=== PATIENT | female | born 1940 | race Caucasian/White ===

== ENCOUNTER 2016-10-06 11:49 | Inpatient (IN) ==
--- NOTE | 2016-10-05 22:09 | Discharge Summary ---
<Sarah Beth Hogan - Last Filed: 10/05/16 22:06> Date of Encounter: 10/05/16 - Discharge Diagnosis (1) Arthritis of knee, right Priority: Primary Status: Acute (2) Status post total knee replacement, right Priority: Primary Status: Acute (3) Pacemaker Priority: Secondary Status: Chronic (4) COPD (chronic obstructive pulmonary disease) Priority: Secondary Status: Chronic Qualifiers: COPD type: unspecified COPD Qualified Code(s): J44.9 - Chronic obstructive pulmonary disease, unspecified (5) Hypertension Priority: Secondary Status: Chronic Qualifiers: Hypertension type: essential hypertension (6) Hypothyroidism Priority: Secondary Status: Chronic Qualifiers: Hypothyroidism type: unspecified (7) Hyperlipidemia Priority: Secondary Status: Chronic Qualifiers: Hyperlipidemia type: unspecified Qualified Code(s): E78.5 - Hyperlipidemia , unspecified - Discharge Medications Home Medications: Metoprolol [Lopressor] 25 mg PO BID 09/19/14 [History] Budesonide/Formoterol 160/4.5 [Symbicort] 1 puff IH BIDR PRN 12/13/14 [History] Clopidogrel [Plavix] 75 mg PO DAILY 12/13/14 [History] hydroCHLOROthiazide [Hydrochlorothiazide] 25 mg PO DAILY 12/13/14 [History] Amlodipine Besylate 10 mg PO DAILY 07/09/15 [History] Ginkgo Biloba 60 mg PO DAILY 07/09/15 [History] Oxybutynin [Ditropan] 5 mg PO BID 07/09/15 [History] Atorvastatin [Lipitor] 40 mg PO HS #30 tablet 07/10/15 [Rx] Isosorbide MONOnitrate (24 HR) [Imdur] 120 mg PO DAILY 365 Days 07/10/15 [Rx] Nitroglycerin [Nitrostat] 0.4 mg SL Q5M PRN #1 vial 07/10/15 [Rx] Albuterol Sulfate [Albuterol Inhaler] 1 puff IH QID PRN 08/29/15 [History] Aspirin Enteric Coated [Aspirin EC] 325 mg PO DAILY #21 tablet. 10/05/16 [Rx] OxyCODONE Immed Rel [Roxicodone 5 MG] 5 - 10 mg PO Q6HR PRN #40 tablet 10/05/16 [Rx] Aspirin [Lo-Dose Aspirin EC] 81 mg PO DAILY 10/06/16 [History] Allergies/Adverse Reactions: 3 Allergy/AdvReac Type Severity Reaction Status Date / Time isosorbide [From Isordil] AdvReac Rash Verified 10/06/16 13:06 Primary care physician: New Hawkins DO - Patient Status Disposition: Transfer Inpatient Rehab Fac Condition: Good - Discharge Instructions Follow Up With: New Hawkins DO [Primary Care Provider] - - Hospital Course Hospital course: Ms. Swain is a 76 year old female - Time Spent with Patient Total time spent providing and/or coordinating discharge services: <GuzmanChristopher - Last Filed: 10/09/16 05:55> Date of Encounter: 10/09/16 Time of Encounter: 05:54 - Discharge Diagnosis (1) Hypertension Priority: Secondary Status: Chronic Qualifiers: Hypertension type: unspecified secondary hypertension Qualified Code(s): I15.9 - Secondary hypertension, unspecified; I15 - Secondary hypertension (2) Hypothyroidism Priority: Secondary Status: Chronic Qualifiers: Hypothyroidism type: unspecified Qualified Code(s): E03.9 - Hypothyroidism , unspecified (3) Hyperlipidemia Priority: Secondary Status: Chronic Qualifiers: Hyperlipidemia type: unspecified Qualified Code(s): E78.5 - Hyperlipidemia , unspecified (4) Arthritis of knee, right Priority: Primary Status: Chronic (5) Status post total knee replacement, right Priority: Primary Status: Acute (6) Pacemaker Priority: Secondary Status: Chronic (7) COPD (chronic obstructive pulmonary disease) Priority: Secondary Status: Chronic Qualifiers: COPD type: unspecified COPD Qualified Code(s): J44.9 - Chronic obstructive pulmonary disease, unspecified Primary care physician: New Hawkins DO - Patient Status Functional capacity at discharge: uses cane/walker Overall status at discharge: patient is progressing back to baseline - Hospital Course Hospital course: Ms. Swain is a 76 year old female Status post revision right knee. Uni to a total The patient had an uneventful postoperative course. They received antibiotics and physical therapy and were discharged in stable condition. There will follow -up in the office in 2 weeks. . - Time Spent with Patient Total time spent providing and/or coordinating discharge services:
--- NOTE | 2016-10-06 09:31 | Physician Discharge Referral ---
ExtendedCare Referral Info Transfer To: [facility] - Provider in Charge: Provider in Charge after Transfer: PCP Institutional Level of Care: Skilled - Diagnosis (1) Arthritis of knee, right Priority: Primary Status: Acute (2) Status post total knee replacement, right Priority: Primary Status: Acute (3) Pacemaker Priority: Secondary Status: Chronic (4) COPD (chronic obstructive pulmonary disease) Priority: Secondary Status: Chronic (5) Hypertension Priority: Secondary Status: Chronic (6) Hypothyroidism Priority: Secondary Status: Chronic (7) Hyperlipidemia Priority: Secondary Status: Chronic Expected Duration of Placement: < 30 days Prognosis: Good Aware of Diagnosis: Patient Aware of Prognosis: Patient - Transfer Medications Prescriptions: OxyCODONE Immed Rel [Roxicodone 5 MG] 5 - 10 mg PO Q6HR PRN #40 tablet PRN Reason: Pain Aspirin Enteric Coated [Aspirin EC] 325 mg PO DAILY #21 tablet.dr Rob Medications: Metoprolol [Lopressor] 25 mg PO BID 09/19/14 [History] Budesonide/Formoterol 160/4.5 [Symbicort] 1 puff IH BIDR PRN 12/13/14 [History] Clopidogrel [Plavix] 75 mg PO DAILY 12/13/14 [History] hydroCHLOROthiazide [Hydrochlorothiazide] 25 mg PO DAILY 12/13/14 [History] Amlodipine Besylate 10 mg PO DAILY 07/09/15 [History] Ginkgo Biloba 60 mg PO DAILY 07/09/15 [History] Oxybutynin [Ditropan] 5 mg PO BID 07/09/15 [History] Atorvastatin [Lipitor] 40 mg PO HS #30 tablet 07/10/15 [Rx] Isosorbide MONOnitrate (24 HR) [Imdur] 120 mg PO DAILY 365 Days 07/10/15 [Rx] Nitroglycerin [Nitrostat] 0.4 mg SL Q5M PRN #1 vial 07/10/15 [Rx] Albuterol Sulfate [Albuterol Inhaler] 1 puff IH QID PRN 08/29/15 [History] Naproxen [Naprosyn] 500 mg PO BID PRN 08/14/16 [History] Aspirin Enteric Coated [Aspirin EC] 325 mg PO DAILY #21 tablet. 10/05/16 [Rx] OxyCODONE Immed Rel [Roxicodone 5 MG] 5 - 10 mg PO Q6HR PRN #40 tablet 10/05/16 [Rx] Allergies/Adverse Reactions: 3 Allergy/AdvReac Type Severity Reaction Status Date / Time isosorbide [From Isordil] Allergy Rash Verified 09/24/16 10:06 lisinopril Allergy Cough Verified 08/14/16 09:25 - Respiratory Orders None Smoking Cessation: Smoking cessation has been advised. For more information, call the [place] Tobacco Quit Line at 0-056-PJWQ-NOW. - Ancillary Orders May use pressure relief devices daily prn, May go on DEMETRI w/family/respon alliance party w /meds at nurse discretion PRN, May consult with Dentist, Television Equipment Operator, Dynamics Ax Solution Architect PRN - Mobility Orders Chair, Ambulate - Rehabiliation Orders Rehab Potential: Good Rehab Orders: ROM Exercises, Evaluation for Physical Therapy, Evaluation for Occupational Therapy - Treatments List/Other: Right Knee: Revision TKR Opsite dressing, leave intact until first post-operative visit. If dressing becomes >50% saturated, contact office, remove dressing and place appropriate dressing in its place. Do not allow for dressing to get wet. Modale in place. To be removed at POW#2 once incision has healed. PT: Precautions x 6 weeks Apply cold therapy wrap 3-6x/day for 20 minutes at a time. Encourage ambulation throughout the day and incentive spirometer 10x/hour. Elevate affected extremity above heart as tolerated. Brace: Knee immobilizer - keep in place at night until first post-operative appointment - Diet Orders Regular CERTIFICATION: I certify that the transfer of the above named patient to an Extended Care Facility is necessary for the continuing treatment of the diagnosis listed. The above information is true and accurate reflection of patient's current condition. Confidential - Redisclosure prohibited without a patient's written consent.
--- NOTE | 2016-10-06 11:56 | History & Physical Report ---
Date of Encounter: 10/06/16 Time of Encounter: 11:55 24 Hour HP Update - Instructions Instructions: If the History and Physical is less than 30 days old and was completed prior to A.M. admission and or procedure and has NOT been updated on calendar day of procedure please complete this update prior to performing procedure. - Update Patient reports changes in Medical Condition: No Changes in examination, assessment, or condition: No Changes in Medication: No Preop tests/diagnostics Reviewed: Yes Surgery Remains Indicated: Yes Consent for Planned Operative Procedure(s) Verified: Yes - Pre-Operative Checklist Preoperative Checklist Indicated: No Prophylactic Antibiotic Ordered: Yes Is VTE Prophylaxis Indicated?: Yes
[2016-10-06] MEDS ORDERED: Famotidine 20 MG/2 ML VIAL IVP ONE (12:11)
[2016-10-06] MEDS ORDERED: Acetaminophen IV 1,000 MG/100 ML INFUS..BTL IVPB ONE (12:12)
[2016-10-06] MEDS ORDERED: Gabapentin 300 MG CAPSULE PO ONE (12:12)
[2016-10-06] MEDS ORDERED: Ringers Solution, Lactated 1,000 ML IVC SCH ×2 (12:15→16:24)
[2016-10-06 12:25] LABS: Basophils # 0.1 K/mcL (0.0-0.2); Basophils % 1.1 %; Eosinophils # 0.3 K/mcL (0.0-0.6); Eosinophils % 3.8 %; Hematocrit 44.6 % (35.3-44.9); Hemoglobin 15.1 g/dL (11.5-15.4); Immature Granulocytes % 0.3 % (0-4); Lymphocytes # 2.8 K/mcL (0.6-4.6); Lymphocytes % 42.2 %; Mean Corpuscular HGB Conc 33.9 g/dL (31.6-35.5); Mean Corpuscular Hemoglobin 28.9 pg (28.0-33.3); Mean Corpuscular Volume 85.3 fL (83.0-100.0); Mean Platelet Volume 9.1 fL (9.4-12.4); Monocytes # 0.4 K/mcL (0.0-1.3); Monocytes % 6.2 %; Neutrophils # 3.1 K/mcL (1.6-8.9); Platelet Count 204 K/mcL (140-400); Red Blood Count 5.23 M/mcL (3.82-4.97); Red Cell Distribution Width 12.7 % (11.5-14.5); Segmented Neutrophils % 46.4 %
[2016-10-06] MEDS ORDERED: *HR* Promethazine 25 MG/ML VIAL IVP PRN (12:25)
[2016-10-06] MEDS ORDERED: *HR* HYDROmorphone (PF) 1 MG/ML SYRINGE IVP PRN (12:25)
[2016-10-06] MEDS ORDERED: Dexamethasone 4 MG/ML VIAL ONE (12:31)
[2016-10-06] MEDS ORDERED: Lidocaine -MPF 2% 2 ML VIAL ONE (12:31)
[2016-10-06] MEDS ORDERED: Ondansetron 4 MG/2 ML VIAL ONE (12:31)
[2016-10-06] MEDS ORDERED: *HR* Propofol 200 MG/20 ML VIAL IVP ONE (12:31)
[2016-10-06] MEDS ORDERED: Lidocaine -MPF 4% 5 ML AMPUL ONE (12:31)
[2016-10-06] MEDS ORDERED: *HR* FentaNYL (PF) 100 MCG/2 ML VIAL ONE (12:31)
[2016-10-06] MEDS ORDERED: *HR* Succinylcholine 200 MG/10 ML VIAL IVP ONE (12:31)
[2016-10-06] MEDS ORDERED: CeFAZolin Pre 2,000 MG/100 ML 2,000 MG/100 ML BAG IVPB ONE (12:32)
[2016-10-06] MEDS ORDERED: Albuterol 2.5 MG/3 ML NEBULIZER IH ONE (12:41)
--- NOTE | 2016-10-06 12:57 | Anesthesia Evaluation PreOp ---
Date of Encounter: 10/06/16 Time of Encounter: 13:00 - Past History Planned Operation: Rt TKA Cardiac History: SD, Angina, HTN, Hyperlipidemia, Cardiac Surgery (CABG X3 1993) , Cardiac Stent (Stent X 4 2015), Pacemaker/ICD (Interrogated 2 weeks ago, pacemaker dependent) Pulmonary History: Denies Any Significant HX LAB TECH History: Denies Any Significant HX Other Medical History: Thyroid Anesthesia History: No Prior Anesthetic Complications : No Alcohol Use: none Drug use: none Medications and Allergies Metoprolol [Lopressor] 25 mg PO BID 09/19/14 [History] Budesonide/Formoterol 160/4.5 [Symbicort] 1 puff IH BIDR PRN 12/13/14 [History] Clopidogrel [Plavix] 75 mg PO DAILY 12/13/14 [History] hydroCHLOROthiazide [Hydrochlorothiazide] 25 mg PO DAILY 12/13/14 [History] Amlodipine Besylate 10 mg PO DAILY 07/09/15 [History] Ginkgo Biloba 60 mg PO DAILY 07/09/15 [History] Oxybutynin [Ditropan] 5 mg PO BID 07/09/15 [History] Atorvastatin [Lipitor] 40 mg PO HS #30 tablet 07/10/15 [Rx] Isosorbide MONOnitrate (24 HR) [Imdur] 120 mg PO DAILY 365 Days 07/10/15 [Rx] Nitroglycerin [Nitrostat] 0.4 mg SL Q5M PRN #1 vial 07/10/15 [Rx] Albuterol Sulfate [Albuterol Inhaler] 1 puff IH QID PRN 08/29/15 [History] Naproxen [Naprosyn] 500 mg PO BID PRN 08/14/16 [History] Aspirin Enteric Coated [Aspirin EC] 325 mg PO DAILY #21 tablet. 10/05/16 [Rx] OxyCODONE Immed Rel [Roxicodone 5 MG] 5 - 10 mg PO Q6HR PRN #40 tablet 10/05/16 [Rx] 3 Allergy/AdvReac Type Severity Reaction Status Date / Time No Known Allergies Allergy Verified 10/06/16 12:56 - Meds/Allergy Pre-op Review Medications Reviewed: Yes Allergies Reviewed: Yes Beta Blockers on Current Med List: Yes (Took Metoprolol today 0830) Anesthesia Results - Labs 10/06/16 12:13 10/06/16 12:13 Laboratory Tests 09/24/16 09/24/16 10/06/16 10:26 10:26 12:13 Hgb 15.1 Hct 44.6 Plt Count 204 PT 11.4 INR 1.1 APTT 29.2 Sodium 141 Potassium BUN 11 Creatinine 1.02 10/06/16 12:13 Hgb Hct Plt Count PT INR APTT Sodium Potassium 3.4 L BUN Creatinine - Imaging EKG: report reviewed Additional studies: Cardiac Cath LVEF 60%, patent stents and graft except for SVG to Circ Anesthesia Exam O2 Sat Height 1.55 m Height 1.55 m Weight 67.585 kg Weight 67.585 kg O2 Sat by Pulse Oximetry 96 Vital Signs Temp Pulse Resp BP Pulse Ox 98.0 F 60 18 163/78 96 10/06/16 12:33 10/06/16 12:33 10/06/16 12:33 10/06/16 12:33 10/06/16 12:33 Height: 5'1 Weight: 149 lbs NPO (# of Hours): MN Pain Scale: 0 - HEENT Pupil (Motor): Pupils equal, EOMI Mallampati: III Denture Type: Upper: Complete Oral Opening: Less than or equal to 3 - LAB TECH LOC: Oriented LAB TECH Motor: Normal RUE, Normal LUE, Normal RLE, Normal LLE, Normal Face LAB TECH Sensory: Normal: RUE, LUE, RLE, LLE, Face - Cardiac Rhythm: Regular Murmur: None JVD: No Carotid Bruit: No - Pulmonary Breath Sounds: bilateral Clear Respiratory Effort: Symmetrical Anesthesia Assess/Plan ASA Score: 3 (CAD HTN Pacemaker) Modified Jasmin Scale for Level of Consciousness: Cooperative, oriented, and tranquil Anesthetic Plan: General, Regional Monitoring Plan: Standard Monitors Recovery Plan: PACU (Discussed GA and RA, agrees to proceed)
[2016-10-06] MEDS ORDERED: Plasma-Lyte A (PH 7.4) 1,000 ML IVC SCH (13:00)
[2016-10-06] MEDS ORDERED: ROPIVACAINE HCL/PF 0.5% 30 ML VIAL ONE (13:14)
[2016-10-06] MEDS ORDERED: Bupivacaine/Clonidine Syringe 1 EACH SYRINGE ONE (13:15)
[2016-10-06] MEDS ORDERED: Tetracaine/PF 20 MG/2 ML AMPUL ONE (13:15)
[2016-10-06] MEDS ORDERED: *HR* Midazolam HCl 2 MG/2 ML VIAL ONE (13:16)
--- NOTE | 2016-10-06 13:40 | Anesthesia Procedures ---
Date of Encounter: 10/06/16 Time of Encounter: 12:55 Procedures: Anesthesia - Nerve Block Procedure Date: 10/06/16 Time: 13:30 Pre-op Diagnosis: Rt Total Knee Loosening Surgical Procedure: Rt TKA Revision Checklist: Correct Patient Identifier Correct side: Right Blood Thinner: Yes (Off Plavix 5 days) Monitor Applied: EKG, BP, Pulse Oximetry Supplemental Oxygen via Nasal Cannula (L/min): 2 Sedation: Versed (mg): 2 Sedation: Fentanyl (mcg): 50 Indication: Post Op Analgesia Pre-op Neuro Deficits: No Block Type: Femoral, Other (IPACK) Catheter placed: No Depth at skin (cm): 2 Sterile Technique: Yes Ultrasound used: Yes Anatomy identified: Yes Visual spread of Local: Yes Neuro Stimulation: Yes Nerve Stimulator Range: >0.4 - 0.6 mA Blood on Needle Aspiration: No Smooth Injection of Local: Yes Pain with Injection of Local: No Prep: Chlorhexadine Needle: 22 x 50 mm Stimuplex, 21 x 100 mm Stimuplex Local: 0.25% Bupivicaine w/Clonidine 20 mcg/cc, Tetracaine (40), Ropivacaine ( 0.5%) Volume (cc): 30 Number of Attempts: 1 Complications: None/effective block Vitals: O2 Sat Height 1.55 m Height 1.55 m Weight 67.585 kg Weight 67.585 kg O2 Sat by Pulse Oximetry 93 O2 Sat by Pulse Oximetry 94 O2 Sat by Pulse Oximetry 96 Vital Signs Temp Pulse Resp BP Pulse Ox 98.0 F 60 18 163/78 96 10/06/16 12:33 10/06/16 12:33 10/06/16 12:33 10/06/16 12:33 10/06/16 12:33
--- NOTE | 2016-10-06 14:50 | Orthopedic Operative Note ---
Date of procedure: 10/06/16 Pre-op diagnosis: Aseptic loosening right unicondylar knee replacement Post-op diagnosis: same Procedure: Procedure: Removal of unicondylar knee replacement left revision total knee replacement Estimated blood loss: 200 cc Hardware: Arthrex: Metal and polyethylene replacement. Femur: 3, tibia: 3, [place]: 11, 30 patella. Exam Under anesthesia: Full range of motion mid flexion varus valgus instability Procedural Notes: Grade 3 arthritic changes patellofemoral joint lateral compartment. Operative procedure: The patient was brought to the operating room and placed on the operating room table. After general anesthesia was administered the operative knee was examined. Findings were noted in the exam under anesthesia. The operative extremity was prepped and draped in sterile surgical fashion. The patient received IV antibiotics prior to skin incision. A standard midline incision was made centered over the patella incooperating the old incision. The incision was made through the skin and subcutaneous tissue. A medial parapatellar tendon approach was performed. Care was taken to preserve tissue along the medial aspect of the patella. And to protect the patella tendon. The deep MCL was released off the medial tibia. The infra patella fat pad was excised. Cultures were obtained. The knee was brought into flexion , the interface between the patient's femoral component and distal femur were disrupted with a osteotome and oscillating saw. Femoral component was removed removed without significant bone loss. Attention was then turned to the tibial component this was an all poly- component and removed without incident. The tibial component was loose. The entry holes made for intramedullary femoral guide guide was seated in 5 degrees of valgus distal cut was made. ACL PCL lateral meniscus were removed and shows entry hole was made for the intramedullary tibial guide guide was seated to resect at the level of the medial cut. Femur sized to a size 3 anterior cut was made followed by the posterior condylar cut followed by chamfer cuts. Finishing block was seated box cut was made lug holes are drilled. Tibia subluxed forward sized to a 3 it was she will punched after reamed. The trial components were seated and secured had good fit and fixation and full motion full extension with a 11 spacer. The patella was everted patella cut was made with insertion partial patella tendon patella sized to a 30, 30 guide was seated holes were drilled trial reduction with excellent patella tracking The trial components were removed. The knee sat for 2 minutes with a Betadine saline solution. It was irrigated out with 2 L of pulse irrigation. The tibia cemented first followed by the femur 11 poly-was seated. The knee was brought to full extension while the cement hardened. After the cement hardened the knee was irrigated out again. The knee was closed by the PA. The extensor mechanism was closed with a running #2 Fiberwire suture and a running #2 PDS suture. The deep tissue was irrigated and closed deep with #1 PDS suture superficially with 0 PDS suture. The skin was closed with skin aamir. The patient was placed in a sterile dressing and postoperative brace. They were extubated and transferred to recovery room in stable condition. Anesthesia: VANI Surgeon: Christopher Hinds Steel Sash Erector: Morena Jones Condition: stable Disposition: PACU
[2016-10-06 15:58] LABS: Hematocrit 40.3 % (35.3-44.9); Hemoglobin 13.7 g/dL (11.5-15.4)
--- NOTE | 2016-10-06 15:59 | Anesthesia Evaluation Post Op ---
Date of Encounter: 10/06/16 Time of Encounter: 16:00 - Vital Signs Vital Signs: Vital Signs/O2 Sat/Glucose, Most Current Temp Pulse Resp BP Pulse Ox 10/06/16 15:54 97.1 F L 60 14 125/60 96 10/06/16 15:44 60 12 132/68 97 10/06/16 15:34 60 14 143/68 97 10/06/16 15:24 97.4 F L 60 13 137/65 95 10/06/16 13:53 61 16 124/61 93 10/06/16 13:36 60 15 140/61 93 10/06/16 13:15 60 16 157/71 94 10/06/16 12:33 98.0 F 60 18 163/78 96 - Lungs Lungs: Clear Ascult./Percussion - Airway Airway: Non-obstructed - Cardiovascular Regular Rate - Mental Status Mental Status: Alert & Oriented, Answers Appropriately - Pain Pain Scale: 0 - Nausea Vomiting Nausea Vomiting: Not Present - Hydration Hydration: Ice chips - Discharge PostOp Status: Transfer Patient to floor
[2016-10-06] MEDS ORDERED: MOM Conc 10 ML UD.LIQ PO PRN (16:24)
[2016-10-06] MEDS ORDERED: Ondansetron 4 MG/2 ML VIAL IVP PRN (16:24)
[2016-10-06] MEDS ORDERED: Budesonide/Formoterol 160/4.5 MDI IH PRN (16:24)
[2016-10-06] MEDS ORDERED: Nitroglycerin 0.4 MG TAB.SUBL SL PRN (16:24)
[2016-10-06] MEDS ORDERED: *HR* OxyCODONE Immed Rel 5 MG TABLET PO PRN (16:24)
[2016-10-06] MEDS ORDERED: Sennosides 8.6 MG TABLET PO PRN (16:24)
[2016-10-06] MEDS ORDERED: Naloxone 0.4 MG/ML INJ IVP PRN (16:24)
[2016-10-06] MEDS: ceFAZolin 2,000 MG in D5% in Water 100 ML IVPB SCH (17:38)
[2016-10-06] MEDS: *HR* Enoxaparin 30 MG/0.3 ML SYRINGE SQ SCH (17:39)
[2016-10-06] MEDS ORDERED: *HR* Enoxaparin 30 MG/0.3 ML SYRINGE SQ SCH (18:00)
[2016-10-06] MEDS ORDERED: Temazepam 15 MG CAPSULE PO PRN (21:00)
[2016-10-07] MEDS: ceFAZolin 2,000 MG in D5% in Water 100 ML IVPB SCH (01:19)
[2016-10-07] MEDS: *HR* Enoxaparin 30 MG/0.3 ML SYRINGE SQ SCH ×2 (05:14→17:44)
[2016-10-07 05:29] LABS: Hematocrit 37.2 % (35.3-44.9); Hemoglobin 12.4 g/dL (11.5-15.4)
[2016-10-07] MEDS: *HR* OxyCODONE Immed Rel 5 MG TABLET PO PRN ×3 (05:37→17:43)
[2016-10-07 05:43] LABS: BUN/Creatinine Ratio 15 (6-26); Blood Urea Nitrogen 13 mg/dL (7-20); Calcium 8.7 mg/dL (8.6-10.8); Carbon Dioxide 29 mEq/L (19-29); Chloride 101 mEq/L (98-109); Glucose 180 mg/dL (70-99); Osmolality,Calculated 293 (280-300); Potassium 3.4 mEq/L (3.5-4.5); Sodium 139 mEq/L (136-145); eGFR For African Americans > 60 (> 60); eGFR For Non-African Americans > 60 (> 60)
--- NOTE | 2016-10-07 06:49 | Orthopedics Progress Note ---
Date of Encounter: 10/07/16 Time of Encounter: 06:49 - Assessment and Plan (1) Hypertension Current Visit: No Status: Chronic Qualifiers: Hypertension type: unspecified secondary hypertension Qualified Code(s): I15.9 - Secondary hypertension, unspecified; I15 - Secondary hypertension (2) Hypothyroidism Current Visit: No Status: Chronic Qualifiers: Hypothyroidism type: unspecified Qualified Code(s): E03.9 - Hypothyroidism , unspecified (3) Hyperlipidemia Current Visit: No Status: Chronic Qualifiers: Hyperlipidemia type: unspecified Qualified Code(s): E78.5 - Hyperlipidemia , unspecified (4) Arthritis of knee, right Current Visit: Yes Status: Chronic (5) Status post total knee replacement, right Current Visit: Yes Status: Acute (6) Pacemaker Current Visit: Yes Status: Chronic (7) COPD (chronic obstructive pulmonary disease) Current Visit: Yes Status: Chronic Qualifiers: COPD type: unspecified COPD Qualified Code(s): J44.9 - Chronic obstructive pulmonary disease, unspecified Subjective Interval history: Patient was seen this morning doing well without complaints. Afebrile vital signs stable. Operative extremity: Neurovascularly intact Dressing clean dry and intact Calves nontender Assessment and plan: Continue with postoperative care hematocrit 37 Objective Vital signs: Vital Signs Temp Pulse Resp BP Pulse Ox 10/07/16 04:57 98.1 F 60 17 124/75 97 10/06/16 23:51 97.4 F L 60 15 117/69 95 10/06/16 21:30 97.0 F L 60 16 109/65 96 10/06/16 17:55 97.6 F 60 16 113/50 96 10/06/16 17:13 97.2 F L 60 16 101/58 95 10/06/16 16:46 97.2 F L 60 15 115/58 95 10/06/16 16:25 97.1 F L 60 15 124/56 95 10/06/16 16:04 60 12 125/61 96 10/06/16 15:54 97.1 F L 60 14 125/60 96 10/06/16 15:44 60 12 132/68 97 10/06/16 15:34 60 14 143/68 97 10/06/16 15:24 97.4 F L 60 13 137/65 95 10/06/16 13:53 61 16 124/61 93 10/06/16 13:36 60 15 140/61 93 10/06/16 13:15 60 16 157/71 94 10/06/16 12:33 98.0 F 60 18 163/78 96 Intake and Output 10/06/16 10/06/16 10/07/16 15:59 23:59 07:59 Intake Total 100 / 100 600 / 600 Output Total 200 / 200 800 / 800 Balance -200 / -200 100 / 100 -200 / -200 Intake: IV Fluids 100 / 100 Ancef 2,000 MG In 100 / 100 Dextrose 5% 100 ML @ 200 mls/hr IVPB Q8H [facility] Rx#: [id number] Oral 0 / 0 600 / 600 Output: Urine 800 / 800 Estimated Blood Loss 200 / 200 Other: Weight 67.585 kg - Labs CBC & BMP: 10/07/16 05:13 10/07/16 05:13 Labs: Abnormal lab results RBC 5.23 M/mcL (3.82-4.97) H 10/06/16 12:13 MPV 9.1 fL (9.4-12.4) L 10/06/16 12:13 Potassium 3.4 mEq/L (3.5-4.5) L 10/07/16 05:13 Glucose 180 mg/dL (70-99) H 10/07/16 05:13 - VTE Documentation of Mechanical Device: Venous foot pump, device Consult Discharge Plan - Plan Referrals: New Hawkins DO [Primary Care Provider] -
[2016-10-07] MEDS: Isosorbide MONOnitrate (24 HR) 60 MG TAB.ER.24H PO SCH (10:03)
[2016-10-07] MEDS: Aspirin Enteric Coated 81 MG Tablet PO SCH (10:03)
[2016-10-07] MEDS: hydroCHLOROthiazide 25 MG TABLET PO SCH (10:11)
[2016-10-07] MEDS: amLODIPine 5 MG TABLET PO SCH (10:11)
[2016-10-07] MEDS: (Ginkgo Biloba [Ginkgo Biloba] 60 MG) PO SCH (10:11)
--- NOTE | 2016-10-07 12:23 | Event Note ---
Date of Encounter: 10/07/16 Time of Encounter: 12:22 PCR - Right TKR - Revision to POD1. Patient seen at bedside. Labs stable Pain control: Adequate On Plavix History of Pacemaker, Stent placement, COPD Baseline GFR 53 Participating in PT. All questions and concerns addressed. Educated on use of incentive spirometer, ambulation, and hydration. Patient educated on post-operative restrictions and care. Addressed: See above D/C plan:. [facility]
[2016-10-07] MEDS: *HR* HYDROmorphone (PF) 1 MG/ML SYRINGE IVP PRN (21:53)
[2016-10-08] MEDS: *HR* HYDROmorphone (PF) 1 MG/ML SYRINGE IVP PRN (03:56)
[2016-10-08] MEDS: *HR* OxyCODONE Immed Rel 5 MG TABLET PO PRN ×2 (06:21→17:08)
[2016-10-08] MEDS: *HR* Enoxaparin 30 MG/0.3 ML SYRINGE SQ SCH ×2 (06:22→17:04)
--- NOTE | 2016-10-08 06:48 | Orthopedics Progress Note ---
Date of Encounter: 10/08/16 Time of Encounter: 06:48 - Assessment and Plan (1) Hypertension Current Visit: No Status: Chronic Qualifiers: Hypertension type: unspecified secondary hypertension Qualified Code(s): I15.9 - Secondary hypertension, unspecified; I15 - Secondary hypertension (2) Hypothyroidism Current Visit: No Status: Chronic Qualifiers: Hypothyroidism type: unspecified Qualified Code(s): E03.9 - Hypothyroidism , unspecified (3) Hyperlipidemia Current Visit: No Status: Chronic Qualifiers: Hyperlipidemia type: unspecified Qualified Code(s): E78.5 - Hyperlipidemia , unspecified (4) Arthritis of knee, right Current Visit: Yes Status: Chronic (5) Status post total knee replacement, right Current Visit: Yes Status: Acute (6) Pacemaker Current Visit: Yes Status: Chronic (7) COPD (chronic obstructive pulmonary disease) Current Visit: Yes Status: Chronic Qualifiers: COPD type: unspecified COPD Qualified Code(s): J44.9 - Chronic obstructive pulmonary disease, unspecified Subjective Interval history: Patient was seen this morning doing well without complaints. Afebrile vital signs stable. Operative extremity: Neurovascularly intact Dressing clean dry and intact Calves nontender Assessment and plan: Continue with postoperative care Objective Vital signs: Vital Signs Temp Pulse Resp BP Pulse Ox 10/08/16 04:07 99.4 F 70 16 129/70 92 10/07/16 23:43 98.5 F 75 17 127/57 100 10/07/16 21:22 98.8 F 69 18 143/73 98 10/07/16 15:15 98.0 F 66 20 125/69 97 10/07/16 10:30 98.4 F 60 18 113/69 95 10/07/16 06:51 97.9 F 86 18 104/66 94 Intake and Output 10/07/16 10/07/16 10/08/16 15:59 23:59 07:59 Intake Total 440 / 440 100 / 100 300 / 300 Output Total 150 / 150 0 / 0 900 / 900 Balance 290 / 290 100 / 100 -600 / -600 Intake: Oral 440 / 440 100 / 100 300 / 300 Output: Urine 150 / 150 0 / 0 900 / 900 Other: Meal Lunch Dinner Percent of Meal Consumed 100% 10% # Voids 2 # Bowel Movements 0 - Labs CBC & BMP: 10/07/16 05:13 10/07/16 05:13 Labs: Abnormal lab results RBC 5.23 M/mcL (3.82-4.97) H 10/06/16 12:13 MPV 9.1 fL (9.4-12.4) L 10/06/16 12:13 Potassium 3.4 mEq/L (3.5-4.5) L 10/07/16 05:13 Glucose 180 mg/dL (70-99) H 10/07/16 05:13 - VTE Documentation of Mechanical Device: Venous foot pump, device Consult Discharge Plan - Plan Referrals: New Hawkins DO [Primary Care Provider] -
[2016-10-08 07:30] LABS: Hematocrit 32.6 % (35.3-44.9); Hemoglobin 11.1 g/dL (11.5-15.4)
[2016-10-08 07:58] LABS: BUN/Creatinine Ratio 15 (6-26); Blood Urea Nitrogen 12 mg/dL (7-20); Calcium 8.5 mg/dL (8.6-10.8); Carbon Dioxide 30 mEq/L (19-29); Chloride 101 mEq/L (98-109); Glucose 120 mg/dL (70-99); Osmolality,Calculated 291 (280-300); Potassium 3.2 mEq/L (3.5-4.5); Sodium 140 mEq/L (136-145); eGFR For African Americans > 60 (> 60); eGFR For Non-African Americans > 60 (> 60)
[2016-10-08] MEDS: Aspirin Enteric Coated 81 MG Tablet PO SCH (09:28)
[2016-10-08] MEDS: Isosorbide MONOnitrate (24 HR) 60 MG TAB.ER.24H PO SCH (09:28)
[2016-10-08] MEDS: hydroCHLOROthiazide 25 MG TABLET PO SCH (09:29)
[2016-10-08] MEDS: amLODIPine 5 MG TABLET PO SCH (09:29)
[2016-10-08] MEDS: (Ginkgo Biloba [Ginkgo Biloba] 60 MG) PO SCH (09:32)
--- NOTE | 2016-10-08 13:26 | Event Note ---
Date of Encounter: 10/08/16 Time of Encounter: 11:45 PCR - Right TKR - Revision to POD2. Patient seen at bedside. Labs stable Nurses concerned re: behavior last night with hallucination and disorientation to time and place - resolved by morning. Discussed with patient who states this has been going on for quite some time. She states she lives with her son and daughter in law and is never alone after dark. She denies having discussed this happening with any medical professional. She states that she doesn't know it happens, but that in the morning people tell her that she has been talking about things like needing to clean the house, people pulling in her driveway, etc that are out of place. Will have her take Restoril tonight to help with these symptoms. Pain control: Adequate On Plavix History of Pacemaker, Stent placement, COPD Baseline GFR 53 Participating in PT. All questions and concerns addressed. Educated on use of incentive spirometer, ambulation, and hydration. Patient educated on post-operative restrictions and care. Addressed: See above D/C plan:. [facility]
[2016-10-08] MEDS ORDERED: Temazepam 15 MG CAPSULE PO PRN (19:14)
--- NOTE | 2016-10-09 05:55 | Orthopedics Progress Note ---
Date of Encounter: 10/09/16 Time of Encounter: 05:55 - Assessment and Plan (1) Hypertension Current Visit: No Status: Chronic Qualifiers: Hypertension type: unspecified secondary hypertension Qualified Code(s): I15.9 - Secondary hypertension, unspecified; I15 - Secondary hypertension (2) Hypothyroidism Current Visit: No Status: Chronic Qualifiers: Hypothyroidism type: unspecified Qualified Code(s): E03.9 - Hypothyroidism , unspecified (3) Hyperlipidemia Current Visit: No Status: Chronic Qualifiers: Hyperlipidemia type: unspecified Qualified Code(s): E78.5 - Hyperlipidemia , unspecified (4) Arthritis of knee, right Current Visit: Yes Status: Chronic (5) Status post total knee replacement, right Current Visit: Yes Status: Acute (6) Pacemaker Current Visit: Yes Status: Chronic (7) COPD (chronic obstructive pulmonary disease) Current Visit: Yes Status: Chronic Qualifiers: COPD type: unspecified COPD Qualified Code(s): J44.9 - Chronic obstructive pulmonary disease, unspecified Subjective Interval history: Patient was seen this morning doing well without complaints. Afebrile vital signs stable. Operative extremity: Neurovascularly intact Dressing clean dry and intact Calves nontender Assessment and plan: Continue with postoperative care Discharge today Objective Vital signs: Vital Signs Temp Pulse Resp BP Pulse Ox 10/09/16 05:38 99.3 F 69 19 164/77 96 10/09/16 00:17 99.8 F H 72 17 152/69 96 10/08/16 19:39 99.7 F H 76 17 150/76 97 10/08/16 15:55 99.8 F H 75 16 138/77 95 10/08/16 11:37 100.0 F H 70 18 150/67 92 10/08/16 08:24 99.2 F 63 16 137/69 94 Intake and Output 10/08/16 10/08/16 10/09/16 15:59 23:59 07:59 Intake Total 240 / 240 600 / 600 Output Total 700 / 700 400 / 400 1200 / 1200 Balance -460 / -460 -400 / -400 -600 / -600 Intake: Oral 240 / 240 600 / 600 Output: Urine 700 / 700 400 / 400 1200 / 1200 - Labs CBC & BMP: 10/08/16 06:56 10/08/16 06:56 Labs: Abnormal lab results RBC 5.23 M/mcL (3.82-4.97) H 10/06/16 12:13 Hgb 11.1 g/dL (11.5-15.4) L 10/08/16 06:56 Hct 32.6 % (35.3-44.9) L 10/08/16 06:56 MPV 9.1 fL (9.4-12.4) L 10/06/16 12:13 Potassium 3.2 mEq/L (3.5-4.5) L 10/08/16 06:56 Carbon Dioxide 30 mEq/L (19-29) H 10/08/16 06:56 Glucose 120 mg/dL (70-99) H 10/08/16 06:56 Calcium 8.5 mg/dL (8.6-10.8) L 10/08/16 06:56 - VTE Documentation of Mechanical Device: Venous foot pump, device Consult Discharge Plan - Plan Referrals: New Hawkins DO [Primary Care Provider] -
[2016-10-09] MEDS: *HR* Enoxaparin 30 MG/0.3 ML SYRINGE SQ SCH (05:58)
[2016-10-09 07:25] VITALS: BP 159/69
[2016-10-09] MEDS: amLODIPine 5 MG TABLET PO SCH (08:10)
[2016-10-09] MEDS: Isosorbide MONOnitrate (24 HR) 60 MG TAB.ER.24H PO SCH (08:11)
[2016-10-09] MEDS: hydroCHLOROthiazide 25 MG TABLET PO SCH (08:11)
[2016-10-09] MEDS: Aspirin Enteric Coated 81 MG Tablet PO SCH (08:11)
[2016-10-09] MEDS: (Ginkgo Biloba [Ginkgo Biloba] 60 MG) PO SCH (08:52)
== END 2016-10-09 11:52 | DRG 468 ==
LOC: SAMDAY 11:49 → 3NENU 17:01
PROVIDERS: ADMIT Orthopaedic Surgery; ATTEND Orthopaedic Surgery